=== PATIENT | female | born 1995 | race Caucasian/White ===

== ENCOUNTER 2017-09-29 20:46 | Emergency (ER) | payer SELFPAY ==
[2017-09-29 22:41] VITALS: BP 123/53
[2017-09-29 23:20] LABS: Basophils % (Auto) 0.6 % (0.0-1.8); Eosinophils % (Auto) 0.9 % (0.0-4.3); Hematocrit 33.7 % (30.3-42.9); Hemoglobin 10.3 gm/dl (10.1-14.3); Mean Corpuscular HGB Conc 31 % (30-34); Mean Corpuscular Volume 76 fl (79-97); Platelet Count 244 K/mm3 (140-440); Red Blood Count 4.44 M/mm3 (3.65-5.03); Red Cell Distribution Width 17.7 % (13.2-15.2); White Blood Count 8.3 K/mm3 (4.5-11.0)
[2017-09-29 23:22] LABS: Mean Corpuscular Hemoglobin 23 pg (28-32)
[2017-09-29 23:32] LABS: Anion Gap 17 mmol/L; BUN/Creatinine Ratio 22; Blood Urea Nitrogen 11 mg/dL (7-17); Calcium 9.4 mg/dL (8.4-10.2); Carbon Dioxide 23 mmol/L (22-30); Glucose 90 mg/dL (65-100); Potassium 3.9 mmol/L (3.6-5.0); Sodium 137 mmol/L (137-145)
[2017-09-30 00:13] LABS: Bilirubin,Urine NEG (Negative); Blood,Urine LG (Negative); Ketones,Urine NEG (Negative); Leukocyte Esterase,Urine MOD (Negative); Mucus,Urine FEW /HPF; Nitrite,Urine NEG (Negative); Protein,Urine <15 mg/dL mg/dL (Negative); Urobilinogen,Urine < 2.0 mg/dL (<2.0)
[2017-09-30 00:18] LABS: RBC,Urine > 182.0 /HPF (0.0-6.0)
== END 2017-09-30 04:59 | disposition left against medical advice (07) ==
LOC: ED 20:46
CPT/HCPCS: 36415; 80048; 81001; 81025; 85025

== ENCOUNTER 2017-10-01 22:20 | Emergency (ER) | payer SELFPAY ==
[2017-10-01 23:24] LABS: Basophils % (Auto) 0.5 % (0.0-1.8); Eosinophils % (Auto) 0.3 % (0.0-4.3); Hemoglobin 10.5 gm/dl (10.1-14.3); Mean Corpuscular HGB Conc 31 % (30-34); Mean Corpuscular Volume 76 fl (79-97); Platelet Count 242 K/mm3 (140-440); Red Cell Distribution Width 17.8 % (13.2-15.2); White Blood Count 10.8 K/mm3 (4.5-11.0)
[2017-10-01 23:27] LABS: Mean Corpuscular Hemoglobin 23 pg (28-32)
[2017-10-01 23:48] LABS: Alanine Aminotransferase 9 units/L (7-56); Albumin 4.3 g/dL (3.9-5); Albumin/Globulin Ratio 1.1 %; Alkaline Phosphatase 59 units/L (35-129); Anion Gap 21 mmol/L; BUN/Creatinine Ratio 18; Blood Urea Nitrogen 9 mg/dL (7-17); Calcium 9.7 mg/dL (8.4-10.2); Carbon Dioxide 20 mmol/L (22-30); Glucose 87 mg/dL (65-100); Lipase 18 units/L (13-60); Potassium 3.6 mmol/L (3.6-5.0); Sodium 136 mmol/L (137-145); Total Protein 8.1 g/dL (6.3-8.2)
[2017-10-02 04:07] LABS: Bacteria,Urine 2+ /HPF (Negative); Bilirubin,Urine NEG (Negative); Blood,Urine LG (Negative); Ketones,Urine 20 mg/dL (Negative); Leukocyte Esterase,Urine MOD (Negative); Mucus,Urine FEW /HPF; Nitrite,Urine NEG (Negative); Urobilinogen,Urine < 2.0 mg/dL (<2.0)
[2017-10-02 04:09] LABS: RBC,Urine > 182.0 /HPF (0.0-6.0); WBC,Urine > 182.0 /HPF (0.0-6.0)
--- NOTE | 2017-10-02 07:43 | Emergency Department Report ---
ED Female HPI - General Chief complaint: Vaginal Bleeding Stated complaint: ABD PAIN/VAGINAL BLEEDING Time Seen by Provider: 10/02/17 07:31 Source: patient, family, EMS (ems notes not available at time of chart dictation) Mode of arrival: Ambulatory Limitations: Language Barrier - History of Present Illness Initial comments: carburizing furnace operator: [id number] This is a 22-year-old female who was previously unknown to this provider. She is 1, para 0. She does not have any medical problems that she is aware of, she has no chronic medical conditions that she is aware of, no history of abdominal surgeries, is today, and doesn't recall her last menstrual period. She presents to the ER with 16 days of vaginal bleeding. It is crampy , and increased last night, and believes that she passed clots. It does not radiate anywhere, and does not have exacerbating or relieving factors. She reports onset of bilateral lower quadrant cramping and pain within the past 24 hours. No headache, neck pain, chest pain, shortness of breath, irritative urinary symptoms or fever. MD Complaint: vaginal bleeding -: Gradual, days(s) (16) Location: LLQ, RLQ Severity: mild Quality: cramping Consistency: intermittent Improves with: none Worsens with: none Are you Now?: Yes Associated Symptoms: vaginal bleeding, abdominal pain. denies: vaginal discharge, nausea/vomiting, fever/chills, dysuria, hematuria, shortness of breath, syncope, weakness - Related Data Sexually active: Yes Allergies Allergy/AdvReac Type Severity Reaction Status Date / Time Penicillins Allergy Swelling Verified 09/29/17 22:41 ED Review of Systems ROS: Stated complaint: ABD PAIN/VAGINAL BLEEDING Other details as noted in HPI Constitutional: denies: fever Eyes: denies: eye discharge ENT: denies: epistaxis Respiratory: denies: cough Cardiovascular: denies: chest pain Gastrointestinal: denies: nausea Genitourinary: abnormal menses. denies: dysuria Musculoskeletal: as per HPI Skin: as per HPI Neurological: as per HPI Psychiatric: anxiety ED Past Medical Hx - Past Medical History Previous Medical History?: No - Surgical History Past Surgical History?: No - Social History Smoking Status: Never Smoker Substance Use Type: None ED Physical Exam - General Limitations: Language Barrier General appearance: alert, in no apparent distress - Head Head exam: Present: atraumatic, normocephalic - Eye Eye exam: Present: normal appearance, EOMI. Absent: nystagmus - ENT ENT exam: Present: normal exam, normal orophraynx, mucous membranes moist, normal external ear exam - Neck Neck exam: Present: normal inspection, full ROM - Respiratory Respiratory exam: Present: normal lung sounds bilaterally. Absent: respiratory distress - Cardiovascular Cardiovascular Exam: Present: regular rate, normal rhythm, normal heart sounds. Absent: systolic murmur, diastolic murmur, rubs, gallop - GI/Abdominal GI/Abdominal exam: Present: soft, normal bowel sounds. Absent: distended, tenderness, guarding, rebound, rigid, pulsatile mass - External exam: Present: normal external exam Speculum exam: Present: normal speculum exam, vaginal bleeding Bi-manual exam: Present: normal bi-manual exam, other (escorted by nursing ELPIDIO SCHWARTZ). Absent: cervical motion tendernes, adnexal tenderness, uterine enlargement, uterine tenderness - Extremities Exam Extremities exam: Present: normal inspection, full ROM, normal capillary refill. Absent: calf tenderness - Back Exam Back exam: Present: normal inspection, full ROM. Absent: tenderness, CVA tenderness (R), paraspinal tenderness - Neurological Exam Neurological exam: Present: alert, normal gait, other (Extraocular movements intact. Tongue midline. No facial droop. Facial sensation intact to light touch in the V1, V2, V3 distribution bilaterally. 5 and 5 strength in 4 extremities.. Sensation is intact to light touch in 4 extremities.). Absent: motor sensory deficit - Psychiatric Psychiatric exam: Present: anxious - Skin Skin exam: Present: warm, dry, intact, normal color. Absent: rash ED Course Vital Signs 10/01/17 10/02/17 22:36 08:08 Temperature 99.1 F 98.3 F Pulse Rate 82 83 Respiratory 16 16 Rate Blood Pressure 133/70 118/71 [Right] O2 Sat by Pulse 99 100 Oximetry ED Medical Decision Making - Lab Data Result diagrams: 10/01/17 23:05 10/01/17 23:05 Vital Signs 10/01/17 10/02/17 22:36 08:08 Temperature 99.1 F 98.3 F Pulse Rate 82 83 Respiratory 16 16 Rate Blood Pressure 133/70 118/71 [Right] O2 Sat by Pulse 99 100 Oximetry Lab Results 10/01/17 10/01/17 10/01/17 Range/Units 23:05 23:05 23:05 WBC 10.8 (4.5-11.0) K/mm3 RBC 4.50 (3.65-5.03) M/mm3 Hgb 10.5 (10.1-14.3) gm/dl Hct 34.0 (30.3-42.9) % MCV 76 L (79-97) fl MCH 23 L (28-32) pg MCHC 31 (30-34) % RDW 17.8 H (13.2-15.2) % Plt Count 242 (140-440) K/mm3 Lymph % (Auto) 19.8 (13.4-35.0) % [place] % (Auto) 6.7 (0.0-7.3) % Eos % (Auto) 0.3 (0.0-4.3) % Baso % (Auto) 0.5 (0.0-1.8) % Lymph # 2.1 (1.2-5.4) K/mm3 [place] # 0.7 (0.0-0.8) K/mm3 Eos # 0.0 (0.0-0.4) K/mm3 Baso # 0.0 (0.0-0.1) K/mm3 Seg Neutrophils % 72.7 H (40.0-70.0) % Seg Neutrophils # 7.8 H (1.8-7.7) K/mm3 Sodium 136 L (137-145) mmol/L Potassium 3.6 (3.6-5.0) mmol/L Chloride 99.0 (98-107) mmol/L Carbon Dioxide 20 L (22-30) mmol/L Anion Gap 21 mmol/L BUN 9 (7-17) mg/dL Creatinine 0.5 L (0.7-1.2) mg/dL Estimated GFR > 60 ml/min BUN/Creatinine Ratio 18 % Glucose 87 (65-100) mg/dL Calcium 9.7 (8.4-10.2) mg/dL Total Bilirubin 0.20 (0.1-1.2) mg/dL AST 13 (5-40) units/L ALT 9 (7-56) units/L Alkaline Phosphatase 59 (35-129) units/L Total Protein 8.1 (6.3-8.2) g/dL Albumin 4.3 (3.9-5) g/dL Albumin/Globulin Ratio 1.1 % Lipase 18 (13-60) units/L HCG, Qual Positive (Negative) HCG, Quant (0-4) mIU/mL Urine Color (Yellow) Urine Turbidity (Clear) Urine pH (5.0-7.0) Ur Specific [place] (1.003-1.030) Urine Protein (Negative) mg/dL Urine Glucose (UA) (Negative) mg/dL Urine Ketones (Negative) mg/dL Urine Blood (Negative) Urine Nitrite (Negative) Urine Bilirubin (Negative) Urine Urobilinogen (<2.0) mg/dL Ur Leukocyte Esterase (Negative) Urine WBC (Auto) (0.0-6.0) /HPF Urine RBC (Auto) (0.0-6.0) /HPF U Epithel Cells (Auto) (0-13.0) /HPF Urine Bacteria (Auto) (Negative) /HPF Urine Mucus /HPF Blood Type Antibody Screen 10/01/17 10/01/17 10/02/17 Range/Units 23:07 Unknown 04:10 WBC (4.5-11.0) K/mm3 RBC (3.65-5.03) M/mm3 Hgb (10.1-14.3) gm/dl Hct (30.3-42.9) % MCV (79-97) fl MCH (28-32) pg MCHC (30-34) % RDW (13.2-15.2) % Plt Count (140-440) K/mm3 Lymph % (Auto) (13.4-35.0) % [place] % (Auto) (0.0-7.3) % Eos % (Auto) (0.0-4.3) % Baso % (Auto) (0.0-1.8) % Lymph # (1.2-5.4) K/mm3 [place] # (0.0-0.8) K/mm3 Eos # (0.0-0.4) K/mm3 Baso # (0.0-0.1) K/mm3 Seg Neutrophils % (40.0-70.0) % Seg Neutrophils # (1.8-7.7) K/mm3 Sodium (137-145) mmol/L Potassium (3.6-5.0) mmol/L Chloride (98-107) mmol/L Carbon Dioxide (22-30) mmol/L Anion Gap mmol/L BUN (7-17) mg/dL Creatinine (0.7-1.2) mg/dL Estimated GFR ml/min BUN/Creatinine Ratio % Glucose (65-100) mg/dL Calcium (8.4-10.2) mg/dL Total Bilirubin (0.1-1.2) mg/dL AST (5-40) units/L ALT (7-56) units/L Alkaline Phosphatase (35-129) units/L Total Protein (6.3-8.2) g/dL Albumin (3.9-5) g/dL Albumin/Globulin Ratio % Lipase (13-60) units/L HCG, Qual (Negative) HCG, Quant 98574 H (0-4) mIU/mL Urine Color Yellow (Yellow) Urine Turbidity Clear (Clear) Urine pH 5.0 (5.0-7.0) Ur Specific [place] 1.020 (1.003-1.030) Urine Protein 30 mg/dl (Negative) mg/dL Urine Glucose (UA) Neg (Negative) mg/dL Urine Ketones 20 (Negative) mg/dL Urine Blood Lg (Negative) Urine Nitrite Neg (Negative) Urine Bilirubin Neg (Negative) Urine Urobilinogen < 2.0 (<2.0) mg/dL Ur Leukocyte Esterase Mod (Negative) Urine WBC (Auto) > 182.0 H (0.0-6.0) /HPF Urine RBC (Auto) > 182.0 (0.0-6.0) /HPF U Epithel Cells (Auto) 3.0 (0-13.0) /HPF Urine Bacteria (Auto) 2+ (Negative) /HPF Urine Mucus Few /HPF Blood Type A POSITIVE Antibody Screen Negative - Radiology Data Radiology results: report reviewed, image reviewed Obstetrics and transvaginal ultrasound demonstrates no evidence of intrauterine . 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 - Medical Decision Making Differential diagnosis, including but not limited to: Complete miscarriage, incomplete miscarriage, ectopic Assessment and plan: 22-year-old female with no care who reports 16 days of vaginal bleeding, passing clots. No intrauterine is noted, quantitative hCG is 14,000. Vital signs are stable. Hemoglobin and hematocrit does not require emergent packed red blood cell transfusion, the patient's abdomen is soft and benign, and she and her male commercial real estate broker/friend, both playing on a cellular phone. Highly doubt surgical process at this time, the patient most likely had a complete miscarriage. However, she is instructed to return in 48 hours for repeat physical exam and quantitative hCG to risk stratify and exclude ectopic . However given the aforementioned, I believe that ectopic is very unlikely. This was also discussed with the roller die cutting machine operator bonding machine setter, Dr. Boyer, who concurred. All of this was explained to the patient using a carburizing furnace operator, and she verbalized understanding. Critical care attestation.: If time is entered above; I have spent that time in minutes in the direct care of this critically ill patient, excluding procedure time. ED Disposition Clinical Impression: Miscarriage Disposition: DC-01 TO HOME OR SELFCARE Is pt being admited?: No Does the pt Need Aspirin: No Condition: Stable Instructions: Spontaneous Miscarriage (ED) Additional Instructions: Cultures were sent today, results will be available in the next 3-5 days. Please have a primary care doctor or roller die cutting machine operator contact the medical records department to obtain culture results. Follow-up in 2 days for repeat quantitative hCG/ blood test. Avoid heavy lifting, and did not have sex until her roller die cutting machine operator clears the patient to have sex. Follow-up with a roller die cutting machine operator within the next 7-10 days. Return to the ER Runaway with new pain, worsened pain, migration of pain, fevers , chills, confusion, projectile vomiting, loss of consciousness, severe abdominal pain, bleeding more than 2 pads soaked per hour. Las culturas se enviaron hoy, los resultados estarn disponibles en los pr ximos 3-5 ag. Solicite a un mdico de atencin primaria o un gineclogo que se comuniquen con el departamento de registros mdicos para obtener resultados de cultivo. Seguimiento en 2 ag para repetir el anlisis de timmy cuantitativo de hCG / embarazo. Evite levantar cosas pesadas, y no tuvo relaciones sexuales hasta que ricci gineclogo aclare al paciente para tener relaciones sexuales. Radha un seguimiento con un gineclogo dentro de los pr ximos 7-10 ag. Regresar a la johnnie de emergencias con nuevo dolor, dolor empeorado, migracin de dolor, fiebre, escalofros, confusin, vmitos con proyectiles, prdida del conocimiento, dolor abdominal intenso, sangrado de ms de 2 almohadillas empapadas por hora. Referrals: PRIMARY CARE, [Primary Care Provider] - 3-5 Days [facility] [Provider Group] - 3-5 Days [facility] [Provider Group] - 3-5 Days [facility] [Provider Group] - 3-5 Days
[2017-10-02 08:08] VITALS: BP 118/71
--- NOTE | 2017-10-02 09:14 | Ultrasound Report ---
FINAL REPORT PROCEDURE: US OB < = 14 WEEKS FETUS TECHNIQUE: Transabdominal imaging of the pelvis was performed HISTORY: vaginal bleed COMPARISON: None FINDINGS: Transabdominally the uterus measures 7.1 x 4 x 7 centimeters. There is no free fluid. The left ovary measures 3.4 x 1.5 x 2.3 centimeters and contains a 1.5 centimeter cyst with internal echoes. The right ovary was better seen transvaginally. No intrauterine gestation was seen. IMPRESSION: No evident intrauterine gestation. No free fluid. Please see more sensitive transvaginal technique presently performed.
--- NOTE | 2017-10-02 09:18 | Ultrasound Report ---
FINAL REPORT PROCEDURE: US OB TRANSVAGINAL TECHNIQUE: Transvaginal ultrasound of the pelvis was performed. HISTORY: vaginal bleed COMPARISON: No prior studies are available for comparison. FINDINGS: The uterus is 8.8 x 3.8 x 6 centimeters transvaginally. The uterus appears bicornuate the right endometrial stripe 1.9 centimeters thick and the left 1.3 centimeters thick. The right ovary measures 3.1 x 1.5 x 2.3 centimeters and contains a 1.2 centimeter cyst. The left ovary was better visualized transabdominally. IMPRESSION: Bicornuate uterus with thickened endometrial stripes. No intrauterine gestation. If recent was present, missed is suspected. Follow-up to ensure endometrial thinning excluding retained products of conception is recommended. 1.2 centimeter right ovarian cyst.
== END 2017-10-02 10:16 | disposition home or self-care (01) ==
LOC: ED 22:20
DX: O03.9 Complete or unspecified spontaneous abortion without complication (principal); Z88.0 Allergy status to penicillin; Z3A.00 Weeks of gestation of pregnancy not specified
CPT/HCPCS: 36415; 76801; 76817; 80053; 81001; 83690; 84702; 84703; 85025; 86850; 86900; 86901; 87591; 99285

== ENCOUNTER 2017-10-04 12:21 | Emergency (ER) | payer SELFPAY ==
[2017-10-04 13:55] LABS: Basophils % (Auto) 0.5 % (0.0-1.8); Eosinophils % (Auto) 0.7 % (0.0-4.3); Mean Corpuscular HGB Conc 30 % (30-34); Mean Corpuscular Volume 77 fl (79-97); Platelet Count 233 K/mm3 (140-440); Red Blood Count 4.57 M/mm3 (3.65-5.03); Red Cell Distribution Width 18.5 % (13.2-15.2); White Blood Count 9.5 K/mm3 (4.5-11.0)
[2017-10-04 14:05] LABS: Hematocrit 35.4 % (30.3-42.9); Hemoglobin 10.6 gm/dl (10.1-14.3); Mean Corpuscular Hemoglobin 23 pg (28-32)
[2017-10-04 22:05] VITALS: BP 122/66
--- NOTE | 2017-10-05 00:46 | Emergency Department Report ---
ED Female HPI - General Chief complaint: Vaginal Bleeding Stated complaint: BLOOD WORK/SONAGRAM Time Seen by Provider: 10/04/17 23:35 Source: patient Mode of arrival: Ambulatory Limitations: Language Barrier (Ukrainian) - History of Present Illness MD Complaint: vaginal bleeding -: Gradual, days(s) (20 days of spotting and clots) Quality: cramping Consistency: constant Improves with: none Worsens with: none Are you Now?: Yes Associated Symptoms: vaginal bleeding, abdominal pain - Related Data Sexually active: Yes : 1 Para: 0 Previous Rx's Medication Instructions Recorded Last Taken Type Nitrofurantoin [place]/M-Cryst 100 mg PO Q12HR #14 capsule 10/05/17 Unknown Rx [Macrobid CAP] metroNIDAZOLE [Flagyl] 500 mg PO Q8HR #21 tablet 10/05/17 Unknown Rx Allergies Allergy/AdvReac Type Severity Reaction Status Date / Time Penicillins Allergy Swelling Verified 10/04/17 13:02 ED Review of Systems ROS: Stated complaint: BLOOD WORK/SONAGRAM Other details as noted in HPI Constitutional: denies: chills, fever Eyes: denies: eye pain, eye discharge, vision change ENT: denies: ear pain, throat pain Respiratory: denies: cough, shortness of breath, wheezing Cardiovascular: denies: chest pain, palpitations Endocrine: no symptoms reported Gastrointestinal: abdominal pain. denies: nausea, diarrhea Genitourinary: denies: urgency, dysuria, discharge Musculoskeletal: denies: back pain, joint swelling, arthralgia Skin: denies: rash, lesions Neurological: denies: headache, weakness, paresthesias Psychiatric: denies: anxiety, depression Hematological/Lymphatic: denies: easy bleeding, easy bruising ED Past Medical Hx - Past Medical History Previous Medical History?: No - Surgical History Past Surgical History?: No - Social History Smoking Status: Never Smoker Substance Use Type: None - Medications Home Medications: Home Medications Medication Instructions Recorded Confirmed Last Taken Type Nitrofurantoin [place]/M-Cryst 100 mg PO Q12HR #14 capsule 10/05/17 Unknown Rx [Macrobid CAP] metroNIDAZOLE [Flagyl] 500 mg PO Q8HR #21 tablet 10/05/17 Unknown Rx ED Physical Exam - General Limitations: No Limitations General appearance: alert, in no apparent distress - Head Head exam: Present: atraumatic, normocephalic - Eye Eye exam: Present: normal appearance - ENT ENT exam: Present: mucous membranes moist - Neck Neck exam: Present: normal inspection - Respiratory Respiratory exam: Present: normal lung sounds bilaterally. Absent: respiratory distress - Cardiovascular Cardiovascular Exam: Present: regular rate, normal rhythm. Absent: systolic murmur, diastolic murmur, rubs, gallop - GI/Abdominal GI/Abdominal exam: Present: soft, normal bowel sounds. Absent: distended, tenderness - Rectal Rectal exam: Present: deferred - External exam: Present: normal external exam Speculum exam: Present: vaginal discharge, vaginal bleeding (small amount , no hemorrhage), other (malodor like BV) - Extremities Exam Extremities exam: Present: normal inspection, full ROM - Back Exam Back exam: Present: normal inspection, full ROM - Neurological Exam Neurological exam: Present: alert, oriented X3 - Psychiatric Psychiatric exam: Present: normal affect, normal mood - Skin Skin exam: Present: warm, dry, intact, normal color. Absent: rash ED Course Vital Signs 10/04/17 10/04/17 13:02 22:04 Temperature 98.2 F 98.7 F Pulse Rate 100 H 91 H Respiratory 18 14 Rate Blood Pressure 122/69 122/66 O2 Sat by Pulse 100 100 Oximetry ED Medical Decision Making - Lab Data Result diagrams: 10/04/17 13:22 - Medical Decision Making the hormone levels have dropped precipitously and from [id number] to 2000. I CONSIDER RAFA A COMPLETE MISCARRIAGE. SHE NEEDS NO RHOGAM SINCE SHE IS RH POSITIVE, I WILL TREAT HER FOR A URINARY TRACT INFECTION SINCE SHE WAS D/C HOME WITHOUT TREATMENT. SHE ALSO SMELL LIKE BACTERIAL VAGINOSIS THUS I WILL TREAT HER FOR THIS ALSO. Critical care attestation.: If time is entered above; I have spent that time in minutes in the direct care of this critically ill patient, excluding procedure time. ED Disposition Clinical Impression: Complete miscarriage, Bacterial vaginosis UTI (urinary tract infection) Qualifiers: Urinary tract infection type: acute cystitis Hematuria presence: with hematuria Qualified Code(s): N30.01 - Acute cystitis with hematuria Disposition: TO HOME OR SELFCARE Is pt being admited?: No Does the pt Need Aspirin: No Condition: Stable Instructions: Bacterial Vaginosis (ED), Urinary Tract Infection in Women (ED) Prescriptions: metroNIDAZOLE [Flagyl] 500 mg PO Q8HR #21 tablet Nitrofurantoin [place]/M-Cryst [Macrobid CAP] 100 mg PO Q12HR #14 capsule Referrals: PRIMARY CARE, [Primary Care Provider] - 3-5 Days Forms: STI Treatment and Prevention Time of Disposition: 01:00
[2017-10-05] MEDS ORDERED: FLAGYL PO ONE (01:06)
[2017-10-05] MEDS ORDERED: LEVAQUIN PO ONE (01:06)
== END 2017-10-05 03:29 | disposition home or self-care (01) ==
LOC: ED 12:21
DX: O03.9 Complete or unspecified spontaneous abortion without complication (principal); O23.40 Unspecified infection of urinary tract in pregnancy, unspecified trimester; O23.599 Infection of other part of genital tract in pregnancy, unspecified trimester; N76.0 Acute vaginitis; Z3A.00 Weeks of gestation of pregnancy not specified; Z88.0 Allergy status to penicillin
CPT/HCPCS: 36415; 84702; 85025; 86850; 86900; 86901; 99284